=== PATIENT | male | born 1935 | race Caucasian/White ===

== ENCOUNTER 2020-01-07 21:57 | Inpatient (IN) | payer OTHER, BC ==
--- NOTE | 2020-01-07 22:38 | PDOC ---
History of Present Illness - General Chief Complaint: Abnormal Lab Results (Outside) Stated Complaint: DM EMERGENCY/ ANEMIA Time Seen by Provider: 01/07/20 22:33 - History of Present Illness Initial Comments: Pt is a 84yo M with PMH HTN, DM, HLD, CAD who presents with anemia, hyperglycemia, and weakness. Pt sent from Dr. Fish's office given anemia (current 9.5, prior labs 11), hyperglycemia with BG in 700s. Pt's son reports 3 week history of increased weakness, with improvement over the last two days. Son states that pt used to be more active, lives at home on his own, ambulates without a walker. Son states that pt appears weaker/more tired with worsening this week, with associated decreased PO intake. Son reports history of poor dietary choices, mostly carbohydrates with skipped meals. Reports history of diarrhea and vomiting with meals, which has since resolved. Denies f/c, chest pain, SOB, abdominal pain, diarrhea/constipation. PCP: Abe PMH: See above PSH: denies Meds: see chart Allergies: NKDA Review of Systems CONSTITUTIONAL:reports generalized weakness, decreased appetite; denies fever, chills, diaphoresis, malaise HEENT:denies rhinorrhea, nasal congestion, sore throat, visual changes CARDIOVASCULAR:denies chest pain, syncope, palpitations, irregular heart rate, lightheadedness, peripheral edema RESPIRATORY:denies cough, shortness of breath, wheezing, hemoptysis GASTROINTESTINAL: denies abdominal pain, nausea, vomiting, diarrhea, constipation, melena, hematochezia GENITOURINARY:reports increased frequency; denies dysuria, urgency, hesitancy, hematuria, flank pain MUSCULOSKELETAL:denies myalgia, arthralgia HEMATOLOGIC/IMMUNOLOGIC:denies easy bleeding, easy bruising NEUROLOGIC:denies headache, loss of consciousness, focal weakness or paresthesias, dizziness, mental status changes, bladder or bowel incontinence SKIN:denies rash, itching, pallor Physical Exam General: awake, alert, fully oriented, in no acute distress, well developed, well nourished Head: normocephalic, atraumatic Eyes: PERRL, EOMI, anicteric sclera, conjunctiva clear ENT: Auricles normal inspection, hearing grossly normal, oropharynx clear without exudates, moist mucous membranes Neck: supple, normal ROM Lung: equal breath sounds b/l, CTA b/l, no crackles, wheezes Heart: RRR, normal S1, S2, no murmurs appreciated Abdomen: soft, non tender, normoactive bowel sounds, no guarding, rebound, masses Extremities: no edema, no erythema or tenderness, radial/PT pulses 2+ and symmetric Neuro: CN2-12 grossly intact, moves all extremities, normal speech, sensation intact Skin: warm, dry [facility] Pt is a 84yo M with PMH HTN, DM, HLD, CAD who presents with anemia, hyperglycemia, and weakness. DDx including but not limited to: HHS, DKA, infection Workup: labs, ekg pt signed out to night team - pending labs, ekg will likely admit for uncontrolled hyperglycemia Past History - Medical History Allergies/Adverse Reactions: Allergies Allergy/AdvReac Type Severity Reaction Status Date / Time No Known Allergies Allergy Verified 01/08/20 01:01 Home Medications: Ambulatory Orders Aspirin 81 mg PO DAILY 01/08/20 Atorvastatin Ca [Lipitor] 20 mg PO HS 01/08/20 Hydralazine HCl 10 mg PO TID 01/08/20 Isosorbide Mononitrate [Isosorbide Mononitrate ER] 60 mg PO DAILY 01/08/20 Metoprolol Succinate 25 mg PO DAILY 01/08/20 Montelukast Sodium [Singulair] 10 mg PO HS 01/08/20 Latanoprost 1 drop OU HS 01/10/20 Insulin Glargine,Hum.rec.anlog [Toujeo Solostar] 6 unit SQ HS #1 pkt 01/11/20 Insulin Glargine,Hum.rec.anlog [Toujeo Solostar] 12 unit SQ DAILY #1 pkt 01/11/20 Levothyroxine [Synthroid -] 25 mcg PO DAILY@0700 #30 tablet 01/12/20 Anemia: Yes COPD: No Diabetes: Yes HTN: Yes - Psycho-Social/Smoking History Smoking History: Former smoker Have you smoked in the past 12 months: No If you are a former smoker, when did you quit?: 25 Information on smoking cessation initiated: No - Substance Abuse Hx (Audit-C & DAST Scrn) How often the patient has a drink containing alcohol: Never Score: In Men: 4 or > Positive; In Women: 3 or > Positive: 0 Screen Result (Pos requires Nsg. Audit-10AR): Negative In the last yr the pt used illegal drug/Rx for NonMed reason: No Score: Yes response is considered Positive: 0 Screen Result (Positive result requires Nsg. DAST-10): Negative *Physical Exam - Vital Signs Last Vital Signs Temp Pulse Resp BP Pulse Ox 98.5 F 74 19 130/53 L 97 01/07/20 22:06 01/07/20 22:06 01/07/20 22:06 01/07/20 22:06 01/07/20 22:06 ED Treatment Course - LABORATORY CBC & Chemistry Diagram: 01/09/20 08:20 01/09/20 08:20 Discharge - Discharge Information Problems reviewed: Yes Clinical Impression/Diagnosis: Hyperglycemia, Weakness Pancreatitis Qualifiers: Chronicity: acute Pancreatitis type: unspecified pancreatitis type Acute pancreatitis complication: unspecified Qualified Code(s): K85.90 - Acute pancreatitis without necrosis or infection, unspecified Condition: Good Disposition: HOME - Follow up/Referral - Patient Discharge Instructions - Post Discharge Activity
--- NOTE | 2020-01-07 23:29 | PDOC ---
Documentation entered by Shamar Welch SCRIBE, acting as scribe for Manuel Duncan MD. Manuel Duncan MD: This documentation has been prepared by the Yuri torrez Xhesika, SCRIBE, under my direction and personally reviewed by me in its entirety. I confirm that the documentation accurately reflects all work, treatment, procedures, and medical decision making performed by me. Attending Attestation - Resident Resident Name: Nina Gates - ED Attending Attestation I have performed the following: I have examined & evaluated the patient, The case was reviewed & discussed with the resident, I agree w/resident's findings & plan, Exceptions are as noted - HPI HPI: 01/07/20 22:42 The patient is a 84 year old male with a significant PMH of Anemia, DM, and HTN who presents to the emergency department for sent by PCP for hyperglycemia and anemia. Pt reports 3 weeks of weakness, however, son at bedside states his weakness has been getting better the past 2 days. Pt also reports decreased PO intake and increased intake of carbohydrates. The patient denies chest pain, shortness of breath, headache and dizziness. Denies fever, chills, cough, nausea, vomiting, diarrhea and constipation. Denies URI symptoms. Allergies: Per Nursing Chart PCP: Kolby Plummer - Physicial Exam PE: 01/15/20 13:34 See resident exam - Medical Decision Making 01/15/20 13:34 85 M with elevated sugar and weakness. - Labs - IV fluids - Admit Discharge - Discharge Information Problems reviewed: Yes Clinical Impression/Diagnosis: Hyperglycemia, Weakness Pancreatitis Qualifiers: Chronicity: acute Pancreatitis type: unspecified pancreatitis type Acute pancreatitis complication: unspecified Qualified Code(s): K85.90 - Acute pancreatitis without necrosis or infection, unspecified Condition: Good Disposition: HOME - Follow up/Referral - Patient Discharge Instructions - Post Discharge Activity
[2020-01-07 23:43] LABS: URINE APPEARANCE CLEAR; URINE BILIRUBIN NEGATIVE (NEGATIVE); URINE COLOR YELLOW; URINE GLUCOSE (UA) 3+ (NEGATIVE); URINE KETONE NEGATIVE (NEGATIVE); URINE LEUK ESTERASE NEGATIVE (NEGATIVE); URINE NITRITE NEGATIVE (NEGATIVE); URINE PROTEIN NEGATIVE (NEGATIVE); URINE UROBILINOGEN 0.2 mg/dL (0.2-1.0)
[2020-01-07 23:55] LABS: VENOUS BASE EXCESS -0.8 mmol/L (-2-2); VENOUS O2 SATURATION 45.7 % (70-80); VENOUS PCO2 47.6 mmHg (38-52); VENOUS PH 7.341 (7.310-7.410)
[2020-01-07 23:57] LABS: BASO % 0.5 % (0-2.0); EOS % 1.7 % (0-4.5); HEMATOCRIT 30.8 % (35.4-49); HEMOGLOBIN 9.8 GM/dL (11.7-16.9); LYMPH % 29.6 % (8-40); MCHC 31.9 g/dl (32.0-35.9); MEAN CELL VOLUME 87.8 fl (80-96); MONO % 7.8 % (3.8-10.2); NEUT % 60.4 % (42.8-82.8); PLATELET COUNT 216 K/MM3 (134-434); RBC 3.51 M/mm3 (4.00-5.60); RDW 13.4 % (11.9-15.9); WHITE BLOOD COUNT 3.8 K/mm3 (4.0-10.0)
[2020-01-08] MEDS ORDERED: LACTATED RINGERS SOLUTION 1000 ML INFUS.BAG IV STA (00:08)
[2020-01-08] MEDS ORDERED: INSULIN REGULAR HUMAN 100 UNITS/ML *VIAL IVPUSH ONE (00:11)
[2020-01-08 00:12] LABS: INR 1.07 (0.83-1.09); PROTHROMBIN TIME (PATIENT) 12.6 SEC (9.7-13.0)
[2020-01-08 00:14] LABS: ACTIVATED PTT 32.2 SECONDS (25.2-36.5)
[2020-01-08 00:22] LABS: MAGNESIUM 2.2 mg/dL (1.8-2.4)
[2020-01-08 00:37] LABS: ALBUMIN 2.4 g/dl (3.4-5.0); ALK PHOS 186 U/L (45-117); ANION GAP 7 MMOL/L (8-16); BILIRUBIN,TOTAL 0.2 mg/dL (0.2-1); BLOOD UREA NITROGEN 38.5 mg/dL (7-18); CALCIUM 8.7 mg/dL (8.5-10.1); CHLORIDE 98 mmol/L (98-107); CO2 28 mmol/L (21-32); CREATININE 1.8 mg/dL (0.55-1.3); LIPASE 724 U/L (73-393); POTASSIUM 4.7 mmol/L (3.5-5.1); SGOT/AST 17 U/L (15-37); SGPT/ALT 41 U/L (13-61); SODIUM 134 mmol/L (136-145); TOT PROT 6.5 g/dl (6.4-8.2)
[2020-01-08 01:03] LABS: GLUCOSE,RANDOM 631 mg/dL (74-106)
--- NOTE | 2020-01-08 01:38 | PDOC ---
*Physical Exam - Vital Signs Last Vital Signs Temp Pulse Resp BP Pulse Ox 98.5 F 74 19 130/53 L 97 01/07/20 22:06 01/07/20 22:06 01/07/20 22:06 01/07/20 22:06 01/07/20 22:06 - Physical Exam sign out was given . Lab revealed 700 lipase, elevated BS Admitted for pancreatitis under Dr. Rosen. NPO Fluid. ED Treatment Course - LABORATORY CBC & Chemistry Diagram: 01/07/20 23:45 01/07/20 23:45 - ADDITIONAL ORDERS Additional order review: Laboratory Results 01/08/20 01/07/20 01/07/20 00:03 23:45 23:45 PT with INR INR PTT (Actin FS) VBG pH 7.341 POC VBG pCO2 47.6 POC VBG pO2 26.8 L VBG HCO3 25.2 VBG O2 Sat (Idalmis) 45.7 L VBG Base Excess -0.8 Sodium Potassium Chloride Carbon Dioxide Anion Gap BUN Creatinine Est GFR (CKD-EPI)AfAm Est GFR (CKD-EPI)NonAf POC Glucometer 564 Random Glucose Calcium Magnesium 2.2 Total Bilirubin AST ALT Alkaline Phosphatase Troponin I Total Protein Albumin Lipase Beta-Hydroxybutyrate 0.8 Urine Color Urine Appearance Urine pH Ur Specific [place] Urine Protein Urine Glucose (UA) Urine Ketones Urine Blood Urine Nitrite Urine Bilirubin Urine Urobilinogen Ur Leukocyte Esterase 01/07/20 01/07/20 01/07/20 23:45 23:45 23:33 PT with INR 12.60 INR 1.07 PTT (Actin FS) 32.2 VBG pH POC VBG pCO2 POC VBG pO2 VBG HCO3 VBG O2 Sat (Idalmis) VBG Base Excess Sodium 134 L Potassium 4.7 Chloride 98 Carbon Dioxide 28 Anion Gap 7 L BUN 38.5 H Creatinine 1.8 H Est GFR (CKD-EPI)AfAm 38.91 Est GFR (CKD-EPI)NonAf 33.57 POC Glucometer Random Glucose 631 H* Calcium 8.7 Magnesium Total Bilirubin 0.2 AST 17 ALT 41 Alkaline Phosphatase 186 H Troponin I < 0.02 Total Protein 6.5 Albumin 2.4 L Lipase 724 H Beta-Hydroxybutyrate Urine Color Yellow Urine Appearance Clear Urine pH 5.0 Ur Specific [place] 1.022 Urine Protein Negative Urine Glucose (UA) 3+ H Urine Ketones Negative Urine Blood Negative Urine Nitrite Negative Urine Bilirubin Negative Urine Urobilinogen 0.2 Ur Leukocyte Esterase Negative 01/08/20 00:03 POC Glucometer 564 - Medications Given in the ED: ED Medications Discontinued Medications Generic Name Dose Route Start Last Admin Trade Name Tiago PRN Reason Stop Dose Admin Insulin Human Regular 7 units 01/08/20 00:11 01/08/20 01:00 Novolin R Vial *For Ivpush Or Iv Drip Only* IVPUSH 01/08/20 00:12 7 units ONCE ONE Administration Lactated Ringer's 1,000 ml 01/08/20 00:08 01/08/20 00:59 Lactated Ringers Solution IV 01/08/20 00:09 1,000 ml ONCE STA Administration Discharge - Discharge Information Problems reviewed: Yes Clinical Impression/Diagnosis: Pancreatitis Qualifiers: Chronicity: acute Pancreatitis type: unspecified pancreatitis type Acute pancreatitis complication: unspecified Qualified Code(s): K85.90 - Acute pancreatitis without necrosis or infection, unspecified Condition: Good - Admission Yes - Follow up/Referral - Patient Discharge Instructions - Post Discharge Activity
--- NOTE | 2020-01-08 03:12 | HP ---
Admitting History and Physical - Primary Care Physician PCP: sophia south - Admission Chief Complaint: Abnormal Lab Values, Weakness History of Present Illness: This is a 84 year old male with a significant PMHx of Anemia, DM, HTN. Who presents to the ED sent by his PCP for hyperglycemia and anemia. Patient reports having a loss of appetite x 2 weeks. he reports just drinking water and juice. He reports having an increased appetite starting yesterday. Patient denies fever, chills, cough, SOB, CP, palpitations, abdominal pain, nausea, vomiting, diarrhea, constipation, melena, hematochezia, dysuria. Patient denies sick contacts or recent travel. History Source: Patient Limitations to Obtaining History: No Limitations - Past Medical History Cardiovascular: Yes: HTN Heme/Onc: Yes: Anemia Endocrine: Yes: Diabetes Mellitus - Smoking History Smoking history: Former smoker Have you smoked in the past 12 months: No If you are a former smoker, when did you quit?: 25 - Alcohol/Substance Use Hx Alcohol Use: No History of Substance Use: reports: None - Social History Usual Living Arrangement: Yes: Alone, With Child ADL: Independent History of Recent Travel: No Home Medications - Allergies Allergies/Adverse Reactions: Allergies Allergy/AdvReac Type Severity Reaction Status Date / Time No Known Allergies Allergy Verified 01/08/20 01:01 - Home Medications Home Medications: Ambulatory Orders Aspirin 81 mg PO DAILY 01/08/20 Atorvastatin Ca [Lipitor] 20 mg PO HS 01/08/20 Glyburide 5 mg PO BID 01/08/20 Hydralazine HCl 10 mg PO TID 01/08/20 Insulin Glargine,Hum.rec.anlog [Jesus Solchuck] 48 unit SQ DAILY 01/08/20 Isosorbide Mononitrate [Isosorbide Mononitrate ER] 60 mg PO DAILY 01/08/20 Metoprolol Succinate 25 mg PO DAILY 01/08/20 Montelukast Sodium [Singulair] 10 mg PO HS 01/08/20 levoFLOXacin [Levaquin -] 500 mg PO DAILY 01/08/20 Family Medical History Family History: Unremarkable Review of Systems - Review of Systems Constitutional: reports: Loss of Appetite Eyes: reports: No Symptoms HENT: reports: No Symptoms Neck: reports: No Symptoms Cardiovascular: reports: No Symptoms Respiratory: reports: No Symptoms Gastrointestinal: reports: No Symptoms Genitourinary: reports: No Symptoms Breasts: reports: No Symptoms Reported Musculoskeletal: reports: No Symptoms Integumentary: reports: No Symptoms Neurological: reports: No Symptoms Endocrine: reports: No Symptoms Hematology/Lymphatic: reports: No Symptoms Psychiatric: reports: No Symptoms Physical Examination Vital Signs: Vital Signs Temperature 98.5 F 01/07/20 22:06 Pulse Rate 74 01/07/20 22:06 Respiratory Rate 19 01/07/20 22:06 Blood Pressure 130/53 L 01/07/20 22:06 O2 Sat by Pulse Oximetry (%) 97 01/07/20 22:06 Constitutional: Yes: No Distress, Calm Eyes: Yes: Conjunctiva Clear, EOM Intact, PERRL HENT: Yes: Atraumatic, Normocephalic Neck: Yes: Supple, Trachea Midline Cardiovascular: Yes: Regular Rate and Rhythm Respiratory: Yes: Regular, CTA Bilaterally Gastrointestinal: Yes: Soft, Distention, Hypoactive Bowel Sounds Renal/: Yes: WNL Breast(s): Yes: WNL Musculoskeletal: Yes: WNL Extremities: Yes: WNL Edema: No Peripheral Pulses WNL: Yes Neurological: Yes: WNL, Alert, Oriented, Cran Nerves II-XII Intact ...Motor Strength: WNL Psychiatric: Yes: WNL, Alert, Oriented Labs: CBC, BMP 01/07/20 23:45 01/07/20 23:45 Laboratory Results - last 24 hr 01/07/20 01/07/20 01/07/20 23:33 23:45 23:45 WBC 3.8 L RBC 3.51 L Hgb 9.8 L Hct 30.8 L D MCV 87.8 MCH 28.0 MCHC 31.9 L RDW 13.4 Plt Count 216 D MPV 9.0 Absolute Neuts (auto) 2.3 Neutrophils % 60.4 Lymphocytes % 29.6 Monocytes % 7.8 Eosinophils % 1.7 Basophils % 0.5 Nucleated RBC % 0 PT with INR 12.60 INR 1.07 PTT (Actin FS) 32.2 VBG pH POC VBG pCO2 POC VBG pO2 VBG HCO3 VBG O2 Sat (Idalmis) VBG Base Excess Sodium Potassium Chloride Carbon Dioxide Anion Gap BUN Creatinine Est GFR (CKD-EPI)AfAm Est GFR (CKD-EPI)NonAf POC Glucometer Random Glucose Calcium Magnesium Total Bilirubin AST ALT Alkaline Phosphatase Troponin I Total Protein Albumin Lipase Beta-Hydroxybutyrate Urine Color Yellow Urine Appearance Clear Urine pH 5.0 Ur Specific [place] 1.022 Urine Protein Negative Urine Glucose (UA) 3+ H Urine Ketones Negative Urine Blood Negative Urine Nitrite Negative Urine Bilirubin Negative Urine Urobilinogen 0.2 Ur Leukocyte Esterase Negative 01/07/20 01/07/20 01/07/20 23:45 23:45 23:45 WBC RBC Hgb Hct MCV MCH MCHC RDW Plt Count MPV Absolute Neuts (auto) Neutrophils % Lymphocytes % Monocytes % Eosinophils % Basophils % Nucleated RBC % PT with INR INR PTT (Actin FS) VBG pH 7.341 POC VBG pCO2 47.6 POC VBG pO2 26.8 L VBG HCO3 25.2 VBG O2 Sat (Idalmis) 45.7 L VBG Base Excess -0.8 Sodium 134 L Potassium 4.7 Chloride 98 Carbon Dioxide 28 Anion Gap 7 L BUN 38.5 H Creatinine 1.8 H Est GFR (CKD-EPI)AfAm 38.91 Est GFR (CKD-EPI)NonAf 33.57 POC Glucometer Random Glucose 631 H* Calcium 8.7 Magnesium 2.2 Total Bilirubin 0.2 AST 17 ALT 41 Alkaline Phosphatase 186 H Troponin I < 0.02 Total Protein 6.5 Albumin 2.4 L Lipase 724 H Beta-Hydroxybutyrate 0.8 Urine Color Urine Appearance Urine pH Ur Specific [place] Urine Protein Urine Glucose (UA) Urine Ketones Urine Blood Urine Nitrite Urine Bilirubin Urine Urobilinogen Ur Leukocyte Esterase 01/08/20 01/08/20 00:03 03:18 WBC RBC Hgb Hct MCV MCH MCHC RDW Plt Count MPV Absolute Neuts (auto) Neutrophils % Lymphocytes % Monocytes % Eosinophils % Basophils % Nucleated RBC % PT with INR INR PTT (Actin FS) VBG pH POC VBG pCO2 POC VBG pO2 VBG HCO3 VBG O2 Sat (Idalmis) VBG Base Excess Sodium Potassium Chloride Carbon Dioxide Anion Gap BUN Creatinine Est GFR (CKD-EPI)AfAm Est GFR (CKD-EPI)NonAf POC Glucometer 564 326 Random Glucose Calcium Magnesium Total Bilirubin AST ALT Alkaline Phosphatase Troponin I Total Protein Albumin Lipase Beta-Hydroxybutyrate Urine Color Urine Appearance Urine pH Ur Specific [place] Urine Protein Urine Glucose (UA) Urine Ketones Urine Blood Urine Nitrite Urine Bilirubin Urine Urobilinogen Ur Leukocyte Esterase Current Medications Generic Name Dose Route Start Last Admin Trade Name Freq PRN Reason Stop Dose Admin Sodium Chloride 1,000 mls @ 100 mls/hr 01/08/20 03:15 01/08/20 03:35 Normal Saline - IV 100 mls/hr ASDIR STEFANIE Administration Insulin Aspart 1 vial 01/08/20 07:00 Novolog Vial Sliding Scale - SQ ACHS STEFANIE Protocol Imaging - Results Chest X-ray: Image Reviewed Cat Scan: Report Reviewed, Image Reviewed EKG: Image Reviewed Problem List - Problems (1) Diabetes mellitus with hyperosmolarity without hyperglycemic hyperosmolar nonketotic coma Assessment/Plan: Likely due to Dehydration Glucose 631 Insulin given in ED 526~326 Fluid Bolus given in ED Will continue isotonic fluids for now When glucose < 250 change fluids to D50.45%NS with KCL [employer] consult BGMs ISS Monitor vitals Monitor CBC, CMP Code(s): E11.00 - TYPE 2 DIAB W HYPROSM W/O NONKET HYPRGLY-HYPROS COMA ([facility]) (2) Anemia Assessment/Plan: Hgb 9.8 Will transfuse if Hgb < 7.0 Fe, TIBC, Ferritin in am Stool Occult-pending Repeat CBC Monitor vitals Consider Hematology consult Code(s): D64.9 - ANEMIA, UNSPECIFIED (3) Weakness Assessment/Plan: Likely secondary to dehydration Head CT- neg ICH Monitor CBC, CMP Monitor vitals Fall Precautions Code(s): R53.1 - WEAKNESS (4) Pancreatitis Assessment/Plan: Likely secondary to sulfonylureas Lipase 724 GI Consult Abdominal US-pending Monitor CBC, CMP Continue IVF Monitor vitals Code(s): K85.90 - ACUTE PANCREATITIS WITHOUT NECROSIS OR INFECTION, UNSP Qualifiers: Chronicity: acute Pancreatitis type: unspecified pancreatitis type Acute pancreatitis complication: unspecified Qualified Code(s): K85.90 - Acute pancreatitis without necrosis or infection, unspecified (5) HTN (hypertension) Assessment/Plan: stable Monitor BP Continue home meds with parameters Monitor renal function Code(s): I10 - ESSENTIAL (PRIMARY) HYPERTENSION (6) Encounter for screening laboratory testing for COVID-19 virus Assessment/Plan: Low Risk-1 COVID PCR-pending Isolation Precautions Code(s): Z11.59 - ENCOUNTER FOR SCREENING FOR OTHER VIRAL DISEASES Assessment/Plan This is a 84 year old male with a significant PMHx of Anemia, DM, HTN. Who presents to the ED sent by his PCP for hyperglycemia and anemia. Admitted for Pancreattitis, RAZ, Hyperosmolar Hyperglycemic State, Weakness for further evaluation of their emergent condition Plan: See Problem List FEN NS@100ml/hr Na Corrected 142, replete lytes prn NPO DVT ppx OOB SCDs Heparin SQ Dispo: Requires Inpatient Care Visit type - Medication Review Med list reviewed for High Risk Meds patients 65 and older: Yes - Emergency Visit Emergency Visit: Yes ED Registration Date: 01/07/20 Care time: The patient presented to the Emergency Department on the above date and was hospitalized for further evaluation of their emergent condition. - New Patient This patient is new to me today: Yes Date on this admission: 01/08/20 - Critical Care Critical Care patient: No
[2020-01-08] MEDS ORDERED: SODIUM CHLORIDE 1,000 ML IV SCH (03:15)
[2020-01-08 06:17] LABS: BASO % 0.7 % (0-2.0); WHITE BLOOD COUNT 4.3 K/mm3 (4.0-10.0)
[2020-01-08 06:39] LABS: ALBUMIN 2.2 g/dl (3.4-5.0); CREATININE 1.4 mg/dL (0.55-1.3)
[2020-01-08 08:21] LABS: BILIRUBIN,TOTAL 0.2 mg/dL (0.2-1); BLOOD UREA NITROGEN 33.1 mg/dL (7-18); CALCIUM 8.5 mg/dL (8.5-10.1); POTASSIUM 4.3 mmol/L (3.5-5.1); TOT PROT 5.7 g/dl (6.4-8.2)
[2020-01-08] MEDS: INSULIN SLIDING SCALE (NOVOLOG) 1 VIAL SQ SCH ×4 (08:54→23:20)
[2020-01-08 10:22] LABS: HEMATOCRIT 27.5 % (35.4-49); HEMOGLOBIN 8.9 GM/dL (11.7-16.9); MCH 27.8 pg (25.7-33.7); MCHC 32.4 g/dl (32.0-35.9); MEAN CELL VOLUME 85.6 fl (80-96); PLATELET COUNT 193 K/MM3 (134-434); RBC 3.21 M/mm3 (4.00-5.60); RETICULOCYTES 1.84 % (0.5-1.5)
[2020-01-08 10:23] LABS: EOS % 1.6 % (0-4.5); LYMPH % 33.7 % (8-40); MEAN PLT VOLUME 9.2 fl (7.5-11.1); MONO % 7.6 % (3.8-10.2); NEUT % 56.4 % (42.8-82.8)
[2020-01-08] MEDS ORDERED: ISOSORBIDE MONONITRATE 60 MG TAB.SR.24H (FP) PO ONE (10:46)
[2020-01-08] MEDS ORDERED: metoPROLOL SUCCINATE 25 MG TAB.SR.24H (FP) ONE (10:46)
[2020-01-08] MEDS ORDERED: ASPIRIN 81 MG CHEWABLE TABLETS ONE (10:46)
--- NOTE | 2020-01-08 10:46 | EKG ---
Test Reason : Blood Pressure : / mmHG Vent. Rate : 073 BPM Atrial Rate : 073 BPM P-R Int : 160 ms QRS Dur : 102 ms QT Int : 440 ms P-R-T Axes : 061 036 077 degrees QTc Int : 484 ms SINUS RHYTHM WITH PREMATURE ATRIAL COMPLEXES NONSPECIFIC ST AND T WAVE ABNORMALITY PROLONGED QT ABNORMAL ECG Confirmed by NIMESH LEAHY MD ([id number]) on 01/08/2020 10:46:30 AM Referred By: Confirmed By:NIMESH LEAHY MD
[2020-01-08] MEDS: SODIUM CHLORIDE 0.45%/POT 20 MEQ/1,000 ML INFUS.BAG IV SCH ×2 (11:08→23:21)
[2020-01-08] MEDS: ASPIRIN 81 MG CHEWABLE TABLETS PO SCH (11:09)
[2020-01-08] MEDS: metoPROLOL SUCCINATE 25 MG TAB.SR.24H (FP) PO SCH (11:09)
[2020-01-08] MEDS: ISOSORBIDE MONONITRATE 60 MG TAB.SR.24H (FP) PO SCH (11:09)
--- NOTE | 2020-01-08 14:56 | PN ---
Progress Note, Physician History of Present Illness: Pt seen in Er Chart is reviewed Awake/ comfortable - Current Medication List Current Medications: Active Medications Aspirin (Asa -) 81 mg PO DAILY [facility] Last Admin: 01/08/20 11:09 Dose: 81 mg Documented by: Hydralazine HCl (Apresoline -) 10 mg PO TID [facility] Potassium Chloride/Sodium Chloride (1/2ns+20meq Kcl) 20 meq in 1,000 mls @ 100 mls/hr IV ASDIR [facility] Last Admin: 01/08/20 11:08 Dose: 100 mls/hr Documented by: Insulin Aspart (Novolog Vial Sliding Scale -) 1 vial SQ ACHS [facility]; Protocol Last Admin: 01/08/20 12:14 Dose: 8 units Documented by: Insulin Detemir (Levemir Vial) 10 units SQ 0700,2200 [facility] Isosorbide Mononitrate (Imdur -) 60 mg PO DAILY [facility] Last Admin: 01/08/20 11:09 Dose: 60 mg Documented by: Metoprolol Succinate (Toprol Xl -) 25 mg PO DAILY [facility] Last Admin: 01/08/20 11:09 Dose: 25 mg Documented by: Montelukast Sodium (Singulair -) 10 mg PO [facility] - Objective Vital Signs: Vital Signs Temperature 97.8 F 01/08/20 12:18 Pulse Rate 72 01/08/20 12:18 Respiratory Rate 18 01/08/20 12:18 Blood Pressure 110/59 L 01/08/20 12:18 O2 Sat by Pulse Oximetry (%) 99 01/08/20 12:18 Constitutional: Yes: No Distress, Calm Neck: Yes: Supple Cardiovascular: Yes: Regular Rate and Rhythm Respiratory: Yes: CTA Bilaterally Gastrointestinal: Yes: Soft Edema: No Neurological: Yes: Alert Labs: CBC, BMP 01/08/20 05:54 01/08/20 05:54 INR, PTT INR 1.07 (0.83-1.09) 01/07/20 23:45 Problem List - Problems (1) Diabetes mellitus with hyperosmolarity without hyperglycemic hyperosmolar nonketotic coma Code(s): E11.00 - TYPE 2 DIAB W HYPROSM W/O NONKET HYPRGLY-HYPROS COMA ([facility]) (2) HTN (hypertension) Code(s): I10 - ESSENTIAL (PRIMARY) HYPERTENSION (3) Pancreatitis Code(s): K85.90 - ACUTE PANCREATITIS WITHOUT NECROSIS OR INFECTION, UNSP Qualifiers: Chronicity: acute Pancreatitis type: unspecified pancreatitis type Acute pancreatitis complication: unspecified Qualified Code(s): K85.90 - Acute pancreatitis without necrosis or infection, unspecified Assessment/Plan Discussed Fluids Trisal of clear liquid f/u labs u/s abd pending gi consult Monitor bgm Basal insulin Will follow Condition gaurded but stable will follow
[2020-01-08] MEDS ORDERED: hydrALAZINE HCL 25 MG TABLET (FP) ONE (16:07)
[2020-01-08] MEDS: hydrALAZINE HCL 10 MG TABLET PO SCH ×2 (16:30→23:19)
[2020-01-08] MEDS: INSULIN (LEVEMIR) 100 UNITS/ML UNITS SQ SCH (23:19)
[2020-01-08] MEDS: HEPARIN NA (PORCINE) 5,000 UNITS/ML 1ML VIAL SQ SCH (23:19)
[2020-01-08] MEDS: MONTELUKAST NA 10 MG TABLET PO SCH (23:19)
[2020-01-09 02:50] VITALS: BMI 28.5
[2020-01-09] MEDS: hydrALAZINE HCL 10 MG TABLET PO SCH ×3 (06:33→21:51)
[2020-01-09] MEDS: INSULIN SLIDING SCALE (NOVOLOG) 1 VIAL SQ SCH ×4 (06:39→21:52)
[2020-01-09 08:57] LABS: BASO % 0.4 % (0-2.0); EOS % 2.1 % (0-4.5); HEMATOCRIT 30.4 % (35.4-49); LYMPH % 39.5 % (8-40); MCH 28.1 pg (25.7-33.7); MEAN CELL VOLUME 85.2 fl (80-96); MEAN PLT VOLUME 8.5 fl (7.5-11.1); MONO % 6.8 % (3.8-10.2); NEUT % 51.2 % (42.8-82.8); PLATELET COUNT 316 K/MM3 (134-434); RBC 3.57 M/mm3 (4.00-5.60); WHITE BLOOD COUNT 8.5 K/mm3 (4.0-10.0)
[2020-01-09 09:31] LABS: ALBUMIN 2.3 g/dl (3.4-5.0); BILIRUBIN,TOTAL 0.3 mg/dL (0.2-1); BLOOD UREA NITROGEN 19.8 mg/dL (7-18); CALCIUM 8.4 mg/dL (8.5-10.1); CREATININE 1.2 mg/dL (0.55-1.3); POTASSIUM 4.6 mmol/L (3.5-5.1); TOT PROT 6.1 g/dl (6.4-8.2)
[2020-01-09] MEDS: INSULIN (LEVEMIR) 100 UNITS/ML UNITS SQ SCH ×2 (10:01→21:53)
--- NOTE | 2020-01-09 10:08 | CON.GI ---
Consult Consult Specialty:: GI Referred by:: Mike Conklin Reason for Consultation:: suspicion of pancreatitis - History of Present Illness Chief Complaint: Nausea, poor appetite, weakness, diarrhea. - History Source History Provided By: Medical Record Limitations to Obtaining History: Other (pt poor historian) - Past Medical History Cardio/Vascular: Yes: HTN Endocrine: Yes: Diabetes Mellitus - Alcohol/Substance Use Hx Alcohol Use: No History of Substance Use: reports: None - Smoking History Smoking history: Former smoker Have you smoked in the past 12 months: No If you are a former smoker, when did you quit?: 25 - Social History ADL: Independent History of Recent Travel: No Home Medications - Allergies Allergies/Adverse Reactions: Allergies Allergy/AdvReac Type Severity Reaction Status Date / Time No Known Allergies Allergy Verified 01/08/20 01:01 - Home Medications Home Medications: Ambulatory Orders Aspirin 81 mg PO DAILY 01/08/20 Atorvastatin Ca [Lipitor] 20 mg PO HS 01/08/20 Glyburide 5 mg PO BID 01/08/20 Hydralazine HCl 10 mg PO TID 01/08/20 Insulin Glargine,Hum.rec.anlog [Toujeo Solostar] 48 unit SQ DAILY 01/08/20 Isosorbide Mononitrate [Isosorbide Mononitrate ER] 60 mg PO DAILY 01/08/20 Metoprolol Succinate 25 mg PO DAILY 01/08/20 Montelukast Sodium [Singulair] 10 mg PO HS 01/08/20 levoFLOXacin [Levaquin -] 500 mg PO DAILY 01/08/20 Review of Systems - Review of Systems Constitutional: reports: Loss of Appetite, Weakness Physical Exam-GI Vital Signs: Vital Signs Temperature 97.7 F 01/09/20 06:00 Pulse Rate 81 01/09/20 06:00 Respiratory Rate 01/09/20 06:00 Blood Pressure 117/62 01/09/20 06:00 O2 Sat by Pulse Oximetry (%) 96 01/09/20 06:00 Labs: CBC, BMP 01/09/20 08:20 01/09/20 08:20 INR, PTT INR 1.07 (0.83-1.09) 01/07/20 23:45 Imaging - Results Ultrasound: Report Reviewed Problem List - Problems (1) Pancreatitis Code(s): K85.90 - ACUTE PANCREATITIS WITHOUT NECROSIS OR INFECTION, UNSP Qualifiers: Chronicity: acute Pancreatitis type: unspecified pancreatitis type Acute pancreatitis complication: unspecified Qualified Code(s): K85.90 - Acute pancreatitis without necrosis or infection, unspecified Assessment/Plan Mildly elevated lipase. A diagnosis of pancreatitis requires 2 of the following 3 criteria: 1) an amylase or lipase level at least 3x upper limit of normal, 2) compatible upper abdominal pain, 3) imaging suggestive of pancreatic inflammation. He does not meet even 1 of these criteria. He does not have pancreatitis. Will allow diabetic diet as he tells me he is hungry.
[2020-01-09] MEDS: metoPROLOL SUCCINATE 25 MG TAB.SR.24H (FP) PO SCH (10:11)
[2020-01-09] MEDS: HEPARIN NA (PORCINE) 5,000 UNITS/ML 1ML VIAL SQ SCH ×2 (10:11→21:50)
[2020-01-09] MEDS: ASPIRIN 81 MG CHEWABLE TABLETS PO SCH (10:11)
[2020-01-09] MEDS: ISOSORBIDE MONONITRATE 60 MG TAB.SR.24H (FP) PO SCH (10:11)
[2020-01-09] MEDS: SODIUM CHLORIDE 0.45%/POT 20 MEQ/1,000 ML INFUS.BAG IV SCH (10:13)
[2020-01-09] MEDS ORDERED: INSULIN (LEVEMIR) 100 UNITS/ML UNITS SQ ONE (11:58)
--- NOTE | 2020-01-09 11:58 | PN ---
Progress Note (short form) - Note Progress Note: events noted no abd pain feels well he is hungry Vital Signs - 24 hr 01/08/20 01/08/20 01/09/20 12:18 21:58 02:00 Temperature 97.8 F 98.2 F 97.5 F L Pulse Rate 80 77 Pulse Rate [ 72 Apical] Respiratory 18 22 H 20 Rate Blood Pressure 118/60 94/53 L Blood Pressure 110/59 L [Right Arm] O2 Sat by Pulse 99 96 97 Oximetry (%) 01/09/20 01/09/20 01/09/20 06:00 09:00 10:00 Temperature 97.7 F Pulse Rate 81 80 Pulse Rate [ Apical] Respiratory 20 18 Rate Blood Pressure 117/62 114/64 Blood Pressure [Right Arm] O2 Sat by Pulse 96 98 98 Oximetry (%) Current Medications Generic Name Dose Route Start Last Admin Trade Name Freq PRN Reason Stop Dose Admin Aspirin 81 mg 01/08/20 10:00 01/09/20 10:11 Asa - PO 81 mg DAILY [facility] Administration Heparin Sodium (Porcine) 5,000 unit 01/08/20 22:00 01/09/20 10:11 Heparin - SQ 5,000 unit BID ST[facility] Administration Hydralazine HCl 10 mg 01/08/20 14:00 01/09/20 06:33 Apresoline - PO 10 mg TID ST[facility] Administration Insulin Aspart 1 vial 01/08/20 07:00 01/09/20 06:39 Novolog Vial Sliding Scale - SQ Not Given ACHS [facility] Protocol Insulin Detemir 10 units 01/08/20 22:00 01/09/20 10:01 Levemir Vial SQ Not Given 0700,2200 ST[facility] Isosorbide Mononitrate 60 mg 01/08/20 10:00 01/09/20 10:11 Imdur - PO 60 mg DAILY ST[facility] Administration Metoprolol Succinate 25 mg 01/08/20 10:00 01/09/20 10:11 Toprol Xl - PO 25 mg DAILY [facility] Administration Montelukast Sodium 10 mg 01/08/20 22:00 01/08/20 23:19 Singulair - PO 10 mg HS ST[facility]AN[facility] Administration Laboratory Results - last 24 hr 01/08/20 01/08/20 01/09/20 16:27 23:15 06:28 WBC RBC Hgb Hct MCV MCH MCHC RDW Plt Count MPV Absolute Neuts (auto) Neutrophils % Lymphocytes % Monocytes % Eosinophils % Basophils % Nucleated RBC % Sodium Potassium Chloride Carbon Dioxide Anion Gap BUN Creatinine Est GFR (CKD-EPI)AfAm Est GFR (CKD-EPI)NonAf POC Glucometer 334 224 78 Random Glucose Hemoglobin A1c % Calcium Total Bilirubin AST ALT Alkaline Phosphatase Total Protein Albumin Lipase TSH 01/09/20 01/09/20 01/09/20 08:20 08:20 08:20 WBC 8.5 RBC 3.57 L Hgb 10.0 L Hct 30.4 L MCV 85.2 MCH 28.1 MCHC 33.0 RDW 13.0 Plt Count 316 D MPV 8.5 Absolute Neuts (auto) 4.3 Neutrophils % 51.2 Lymphocytes % 39.5 Monocytes % 6.8 Eosinophils % 2.1 Basophils % 0.4 Nucleated RBC % 0 Sodium 140 Potassium 4.6 Chloride 104 Carbon Dioxide 29 Anion Gap 7 L BUN 19.8 H Creatinine 1.2 Est GFR (CKD-EPI)AfAm 63.08 Est GFR (CKD-EPI)NonAf 54.43 POC Glucometer Random Glucose 62 L Hemoglobin A1c % 8.5 H Calcium 8.4 L Total Bilirubin 0.3 AST 15 ALT 30 Alkaline Phosphatase 120 H Total Protein 6.1 L Albumin 2.3 L Lipase 230 TSH 6.77 H 01/09/20 11:43 WBC RBC Hgb Hct MCV MCH MCHC RDW Plt Count MPV Absolute Neuts (auto) Neutrophils % Lymphocytes % Monocytes % Eosinophils % Basophils % Nucleated RBC % Sodium Potassium Chloride Carbon Dioxide Anion Gap BUN Creatinine Est GFR (CKD-EPI)AfAm Est GFR (CKD-EPI)NonAf POC Glucometer 174 Random Glucose Hemoglobin A1c % Calcium Total Bilirubin AST ALT Alkaline Phosphatase Total Protein Albumin Lipase TSH S1 S2 RRR Lungs clear Abd- soft, obese, NT trace edema PLAN dc iv fluids GI eval noted starting diet monitor BGM COVID pending Problem List - Problems (1) Anemia Code(s): D64.9 - ANEMIA, UNSPECIFIED (2) Diabetes mellitus with hyperosmolarity without hyperglycemic hyperosmolar nonketotic coma Code(s): E11.00 - TYPE 2 DIAB W HYPROSM W/O NONKET HYPRGLY-HYPROS COMA ([facility]) (3) HTN (hypertension) Code(s): I10 - ESSENTIAL (PRIMARY) HYPERTENSION
[2020-01-09] MEDS: MONTELUKAST NA 10 MG TABLET PO SCH (21:51)
[2020-01-10] MEDS: INSULIN SLIDING SCALE (NOVOLOG) 1 VIAL SQ SCH ×4 (06:24→22:18)
[2020-01-10] MEDS: hydrALAZINE HCL 10 MG TABLET PO SCH ×3 (06:24→22:30)
[2020-01-10] MEDS: INSULIN (LEVEMIR) 100 UNITS/ML UNITS SQ SCH ×3 (06:24→22:17)
[2020-01-10] MEDS: LEVOTHYROXINE NA 25 MCG TABLET (FP) PO SCH (06:24)
[2020-01-10] MEDS: HEPARIN NA (PORCINE) 5,000 UNITS/ML 1ML VIAL SQ SCH ×2 (09:25→22:31)
[2020-01-10] MEDS: metoPROLOL SUCCINATE 25 MG TAB.SR.24H (FP) PO SCH (09:25)
[2020-01-10] MEDS: ASPIRIN 81 MG CHEWABLE TABLETS PO SCH (09:25)
[2020-01-10] MEDS: ISOSORBIDE MONONITRATE 60 MG TAB.SR.24H (FP) PO SCH (09:25)
[2020-01-10] MEDS ORDERED: INSULIN (NOVOLOG) ASPART 100 UNITS/ML 10ML VIAL ONE ×2 (11:07→18:57)
[2020-01-10] MEDS ORDERED: INSULIN (LEVEMIR) 100 UNITS/ML UNITS SQ ONE ×4 (11:07→18:57)
--- NOTE | 2020-01-10 11:15 | PN ---
Progress Note (short form) - Note Progress Note: events noted no abd pain feels well he is hungry noted low sugars in AM Vital Signs - 24 hr 01/09/20 01/09/20 01/09/20 14:00 18:00 21:00 Temperature 97.5 F L 98.1 F Pulse Rate 70 79 Respiratory 18 18 18 Rate Blood Pressure 114/48 L 123/61 O2 Sat by Pulse 95 97 97 Oximetry (%) 01/09/20 01/10/20 01/10/20 22:00 06:00 09:10 Temperature 98.5 F 98.1 F 98.4 F Pulse Rate 72 61 69 Respiratory 18 18 18 Rate Blood Pressure 116/58 L 131/66 127/54 L O2 Sat by Pulse 98 95 97 Oximetry (%) 01/10/20 09:31 Temperature Pulse Rate Respiratory Rate Blood Pressure O2 Sat by Pulse 97 Oximetry (%) Current Medications Generic Name Dose Route Start Last Admin Trade Name Freq PRN Reason Stop Dose Admin Aspirin 81 mg 01/08/20 10:00 01/10/20 09:25 Asa - PO 81 mg DAILY [facility] Administration Heparin Sodium (Porcine) 5,000 unit 01/08/20 22:00 01/10/20 09:25 Heparin - SQ 5,000 unit BID [facility] Administration Hydralazine HCl 10 mg 01/08/20 14:00 01/10/20 06:24 Apresoline - PO 10 mg TID [facility] Administration Insulin Aspart 1 vial 01/08/20 07:00 01/10/20 06:24 Novolog Vial Sliding Scale - SQ Not Given ACHS [facility] Protocol Insulin Detemir 10 units 01/08/20 22:00 01/10/20 06:24 Levemir Vial SQ Not Given 0700,2200 [facility] Isosorbide Mononitrate 60 mg 01/08/20 10:00 01/10/20 09:25 Imdur - PO 60 mg DAILY [facility] Administration Levothyroxine Sodium 25 mcg 01/10/20 07:00 01/10/20 06:24 Synthroid - PO 25 mcg DAILY@0700 [facility] Administration Metoprolol Succinate 25 mg 01/08/20 10:00 01/10/20 09:25 Toprol Xl - PO 25 mg DAILY [facility] Administration Montelukast Sodium 10 mg 01/08/20 22:00 01/09/20 21:51 Singulair - PO 10 mg HS ST[facility] Administration Laboratory Results - last 24 hr 01/08/20 01/08/20 01/09/20 01:06 10:25 11:43 POC Glucometer 174 Stool Occult Blood Negative COVID-19 ([facility]) Not detected 01/09/20 01/09/20 01/10/20 17:13 21:48 06:15 POC Glucometer 242 217 54 Stool Occult Blood COVID-19 ([facility]) 01/10/20 01/10/20 07:01 11:12 POC Glucometer 103 219 Stool Occult Blood COVID-19 ([facility]) S1 S2 RRR Lungs clear Abd- soft, obese, NT trace edema PLAN dc iv fluids decrease PM Insulin GI eval noted starting diet monitor BGM COVID negative if sugars are better, will dc in AM Problem List - Problems (1) Anemia Code(s): D64.9 - ANEMIA, UNSPECIFIED (2) Diabetes mellitus with hyperosmolarity without hyperglycemic hyperosmolar nonketotic coma Code(s): E11.00 - TYPE 2 DIAB W HYPROSM W/O NONKET HYPRGLY-HYPROS COMA ([facility]) (3) HTN (hypertension) Code(s): I10 - ESSENTIAL (PRIMARY) HYPERTENSION
[2020-01-10] MEDS: MONTELUKAST NA 10 MG TABLET PO SCH (22:19)
[2020-01-10] MEDS: LATANOPROST 0.005% OPHTH SOLN 2.5ML BOTTLE OU SCH (22:32)
[2020-01-11] MEDS: LEVOTHYROXINE NA 25 MCG TABLET (FP) PO SCH (06:28)
[2020-01-11] MEDS: INSULIN SLIDING SCALE (NOVOLOG) 1 VIAL SQ SCH ×4 (06:28→21:32)
[2020-01-11] MEDS: hydrALAZINE HCL 10 MG TABLET PO SCH ×3 (06:29→21:30)
[2020-01-11] MEDS: INSULIN (LEVEMIR) 100 UNITS/ML UNITS SQ SCH ×2 (06:30→21:32)
[2020-01-11] MEDS ORDERED: PT OWN MED DRAWER 7, Y5N ONE (10:29)
[2020-01-11] MEDS: ASPIRIN 81 MG CHEWABLE TABLETS PO SCH (11:13)
[2020-01-11] MEDS: metoPROLOL SUCCINATE 25 MG TAB.SR.24H (FP) PO SCH (11:13)
[2020-01-11] MEDS: ISOSORBIDE MONONITRATE 60 MG TAB.SR.24H (FP) PO SCH (11:13)
[2020-01-11] MEDS: HEPARIN NA (PORCINE) 5,000 UNITS/ML 1ML VIAL SQ SCH ×2 (11:13→21:30)
--- NOTE | 2020-01-11 12:16 | DS ---
Physical Examination Vital Signs: Vital Signs Temperature 98.1 F 01/11/20 11:31 Pulse Rate 70 01/11/20 11:31 Respiratory Rate 20 01/11/20 11:31 Blood Pressure 145/80 01/11/20 11:31 O2 Sat by Pulse Oximetry (%) 95 01/11/20 11:31 Constitutional: Yes: No Distress, Calm Cardiovascular: Yes: Regular Rate and Rhythm Respiratory: Yes: CTA Bilaterally Gastrointestinal: Yes: Normal Bowel Sounds, Soft, Abdomen, Obese. No: Tenderness Edema: No Labs: CBC, BMP 01/09/20 08:20 01/09/20 08:20 Discharge Summary Problems reviewed: Yes Reason For Visit: PANCREATITIS Current Active Problems Anemia (Acute) Diabetes mellitus with hyperosmolarity without hyperglycemic hyperosmolar nonketotic coma (Acute) Encounter for screening laboratory testing for COVID-19 virus (Acute) HTN (hypertension) (Acute) Pancreatitis (Acute) Weakness (Acute) Hospital Course: - Primary Care Physician PCP: [facility]by [facility] - Admission Chief Complaint: Abnormal Lab Values, Weakness History of Present Illness: This is a 84 year old male with a significant PMHx of Anemia, DM, HTN. Who presents to the ED sent by his PCP for hyperglycemia and anemia. Patient reports having a loss of appetite x 2 weeks. he reports just drinking water and juice. He reports having an increased appetite starting yesterday. Patient denies fever, chills, cough, SOB, CP, palpitations, abdominal pain, nausea, vomiting, diarrhea, constipation, melena, hematochezia, dysuria. Patient denies sick contacts or recent travel. sono abd-- pancreatic edema GI eval noted -- not acute pancreatitis Pt stable on adjusting DM meds Off Glipizide Monitor BGM pt stable for dc home Condition: Good - Instructions Diet, Activity, Other Instructions: use insulin-- 12 units in morning and 6 units at night note your sugar readings down -- check twice a day Follow up with Dr Fish in 2 weeks and bring a record of your sugar readings Referrals: Kolby Fish MD [Primary Care Provider] - Disposition: HOME - Home Medications Comprehensive Discharge Medication List: Ambulatory Orders Aspirin 81 mg PO DAILY 01/08/20 Atorvastatin Ca [Lipitor] 20 mg PO HS 01/08/20 Glyburide 5 mg PO BID 01/08/20 Hydralazine HCl 10 mg PO TID 01/08/20 Insulin Glargine,Hum.rec.anlog [Jesus Infante] 48 unit SQ DAILY 01/08/20 Isosorbide Mononitrate [Isosorbide Mononitrate ER] 60 mg PO DAILY 01/08/20 Metoprolol Succinate 25 mg PO DAILY 01/08/20 Montelukast Sodium [Singulair] 10 mg PO HS 01/08/20 levoFLOXacin [Levaquin -] 500 mg PO DAILY 01/08/20 Latanoprost 1 drop OU HS 01/10/20
[2020-01-11] MEDS: MONTELUKAST NA 10 MG TABLET PO SCH (21:30)
[2020-01-11] MEDS: LATANOPROST 0.005% OPHTH SOLN 2.5ML BOTTLE OU SCH (21:31)
[2020-01-12] MEDS: hydrALAZINE HCL 10 MG TABLET PO SCH ×2 (06:24→13:37)
[2020-01-12] MEDS: INSULIN SLIDING SCALE (NOVOLOG) 1 VIAL SQ SCH ×2 (06:25→12:09)
[2020-01-12] MEDS: LEVOTHYROXINE NA 25 MCG TABLET (FP) PO SCH (06:25)
[2020-01-12] MEDS: INSULIN (LEVEMIR) 100 UNITS/ML UNITS SQ SCH (06:25)
[2020-01-12] MEDS ORDERED: INSULIN (NOVOLOG) ASPART 100 UNITS/ML 10ML VIAL ONE (06:40)
[2020-01-12] MEDS: ISOSORBIDE MONONITRATE 60 MG TAB.SR.24H (FP) PO SCH (09:52)
[2020-01-12] MEDS: HEPARIN NA (PORCINE) 5,000 UNITS/ML 1ML VIAL SQ SCH (09:53)
[2020-01-12] MEDS: ASPIRIN 81 MG CHEWABLE TABLETS PO SCH (09:53)
[2020-01-12] MEDS: metoPROLOL SUCCINATE 25 MG TAB.SR.24H (FP) PO SCH (09:53)
[2020-01-12 10:43] VITALS: BP 126/60; PULSE 72; TEMP 97.8
--- NOTE | 2020-01-12 11:51 | PN ---
Progress Note (short form) - Note Progress Note: events noted no abd pain could not be discharged yesterday as he was not able to check his sugars He admits he does not check sugars but he does give himself insulin daily Vital Signs - 24 hr 01/11/20 01/11/20 01/11/20 14:00 19:06 21:00 Temperature 98.1 F 98.2 F Pulse Rate 81 74 Respiratory 20 20 20 Rate Blood Pressure 122/58 L 131/54 L O2 Sat by Pulse 99 98 95 Oximetry (%) 01/11/20 01/12/20 01/12/20 23:00 02:00 06:00 Temperature 98.2 F 98.2 F 98.1 F Pulse Rate 64 64 63 Respiratory 20 20 20 Rate Blood Pressure 133/60 133/60 124/64 O2 Sat by Pulse 99 99 96 Oximetry (%) 01/12/20 01/12/20 09:00 10:42 Temperature 97.8 F Pulse Rate 72 Respiratory 18 Rate Blood Pressure 126/60 O2 Sat by Pulse 95 95 Oximetry (%) Current Medications Generic Name Dose Route Start Last Admin Trade Name Freq PRN Reason Stop Dose Admin Aspirin 81 mg 01/08/20 10:00 01/12/20 09:53 Asa - PO 81 mg DAILY [facility] Administration Heparin Sodium (Porcine) 5,000 unit 01/08/20 22:00 01/12/20 09:53 Heparin - SQ 5,000 unit BID [facility] Administration Hydralazine HCl 10 mg 01/08/20 14:00 01/12/20 06:24 Apresoline - PO 10 mg TID [facility] Administration Insulin Aspart 1 vial 01/08/20 07:00 01/12/20 12:09 Novolog Vial Sliding Scale - SQ 4 units ACHS [facility] Administration Protocol Insulin Detemir 12 units 01/11/20 07:00 01/12/20 06:25 Levemir Vial SQ 12 units AM [facility] Administration Insulin Detemir 6 units 01/10/20 22:00 01/11/20 21:32 Levemir Vial SQ 6 units HS [facility] Administration Isosorbide Mononitrate 60 mg 01/08/20 10:00 01/12/20 09:52 Imdur - PO 60 mg DAILY [facility] Administration Latanoprost 1 drop 01/10/20 22:00 01/11/20 21:31 Xalatan 0.005% Eye Drops - OU 1 drop HS [facility] Administration Levothyroxine Sodium 25 mcg 01/10/20 07:00 01/12/20 06:25 Synthroid - PO 25 mcg DAILY@0700 [facility] Administration Metoprolol Succinate 25 mg 01/08/20 10:00 01/12/20 09:53 Toprol Xl - PO 25 mg DAILY [facility] Administration Montelukast Sodium 10 mg 01/08/20 22:00 01/11/20 21:30 Singulair - PO 10 mg HS ST[facility]IE Administration Laboratory Results - last 24 hr 01/11/20 01/11/20 01/11/20 12:36 15:28 17:33 POC Glucometer 289 296 263 01/11/20 01/12/20 01/12/20 21:14 05:20 11:41 POC Glucometer 259 188 220 S1 S2 RRR Lungs clear Abd- soft, obese, NT no edema PLAN DM education in process spoke with son-- I advised him to get his sugars checked at least once a day and he will be following up with DR Fish in one week continue with current dose insulin stable for discharge home Problem List - Problems (1) Anemia Code(s): D64.9 - ANEMIA, UNSPECIFIED (2) Diabetes mellitus with hyperosmolarity without hyperglycemic hyperosmolar nonketotic coma Code(s): E11.00 - TYPE 2 DIAB W HYPROSM W/O NONKET HYPRGLY-HYPROS COMA ([facility]) (3) HTN (hypertension) Code(s): I10 - ESSENTIAL (PRIMARY) HYPERTENSION
== END 2020-01-12 13:52 | disposition home or self-care (01) | DRG 638 ==
LOC: JER 21:57 → JERBED 01-08 01:53 → J5S 01-08 20:12
PROVIDERS: ADMIT Hospitalist; ATTEND Internal Medicine
DX: E11.65 Type 2 diabetes mellitus with hyperglycemia (principal); N17.9 Acute kidney failure, unspecified; I10 Essential (primary) hypertension; E78.5 Hyperlipidemia, unspecified; I25.10 Atherosclerotic heart disease of native coronary artery without angina pectoris; D64.9 Anemia, unspecified; Z87.891 Personal history of nicotine dependence; Z79.4 Long term (current) use of insulin; E86.0 Dehydration; Z20.828 Contact with and (suspected) exposure to other viral communicable diseases; Z79.84 Long term (current) use of oral hypoglycemic drugs
CPT/HCPCS: 36415; 70450-TC; 71045-TC-FY; 76700-TC; 80053; 80061; 81003; 82010; 82272; 82803; 82962; 83036; 83690; 83721; 83735; 84443; 84484; 85025; 85045; 85610; 85730; 86850; 86900; 86901; 87086; 93005; 93010; 99285-25; J1644; J3480; U0003

== ENCOUNTER 2021-06-01 04:31 | Day surgery (SDC) | payer OTHER ==
[2021-05-30 14:26] VITALS: BMI 31.5
[2021-06-01 11:43] VITALS: TEMP 97.7
[2021-06-01 12:19] VITALS: BP 148/64; PULSE 78
== END 2021-06-01 12:48 | disposition home or self-care (01) ==
LOC: JASU-ENDO 04:31
PROVIDERS: ATTEND Internal Medicine Gastroenterology
PROC: 3E0H8KZ Introduction of Other Diagnostic Substance into Lower GI, Via Natural or Artificial Opening Endoscopic (ICD-10-PCS; 2021-06-01)
PROC: 0DBN8ZX Excision of Sigmoid Colon, Via Natural or Artificial Opening Endoscopic, Diagnostic (ICD-10-PCS; principal; 2021-06-01 11:45)
DX: C19 Malignant neoplasm of rectosigmoid junction (principal); K57.30 Diverticulosis of large intestine without perforation or abscess without bleeding; K62.5 Hemorrhage of anus and rectum; R19.4 Change in bowel habit; I10 Essential (primary) hypertension; E11.9 Type 2 diabetes mellitus without complications
CPT/HCPCS: 74176-TC; 82962; 88305-TC

== ENCOUNTER 2021-06-17 02:23 | Inpatient (IN) | payer OTHER ==
[2021-06-17] MEDS ORDERED: FUROSEMIDE 40 MG/4 ML INJECTABLE VIAL ONE ×2 (02:29→02:32)
[2021-06-17] MEDS ORDERED: methylPREDNISolone NA SUCC 125 MG/2 ML VIAL ONE ×2 (02:29→02:32)
[2021-06-17] MEDS ORDERED: NITROGLYCERIN 2% OINTMENT - 1GM PACKET TD ONE ×2 (02:32→03:44)
[2021-06-17] MEDS ORDERED: LEVALBUTEROL HCL 0.63 MG/3 ML VIAL.NEB. IH ONE ×2 (02:46→02:48)
[2021-06-17] MEDS ORDERED: LEVALBUTEROL HCL 0.63 MG/3 ML VIAL.NEB. IH PRN (02:47)
[2021-06-17 03:06] LABS: BASO % 0.3 % (0-2.0); EOS % 1.5 % (0-4.5); HEMATOCRIT 34.8 % (35.4-49); HEMOGLOBIN 11.4 GM/dL (11.7-16.9); LYMPH % 27.7 % (8-40); MCHC 32.6 g/dl (32.0-35.9); MEAN CELL VOLUME 85.7 fl (80-96); MEAN PLT VOLUME 7.8 fl (7.5-11.1); MONO % 10.3 % (3.8-10.2); NEUT % 60.2 % (42.8-82.8); PLATELET COUNT 283 10^3/uL (134-434); RBC 4.07 M/mm3 (4.00-5.60); RDW 14.3 % (11.9-15.9); WHITE BLOOD COUNT 10.6 K/mm3 (4.0-10.0)
[2021-06-17 03:07] LABS: VENOUS BASE EXCESS -3.2 mmol/L (-2-2); VENOUS O2 SATURATION 49.7 % (70-80)
[2021-06-17] MEDS ORDERED: FUROSEMIDE 40 MG/4 ML INJECTABLE VIAL IVPUSH ONE ×2 (03:11→04:30)
[2021-06-17 03:19] LABS: VENOUS PH 7.137 (7.310-7.410)
[2021-06-17 03:20] LABS: VENOUS PCO2 85.6 mmHg (38-52)
[2021-06-17 03:47] LABS: CALCIUM 8.4 mg/dL (8.5-10.1)
[2021-06-17 03:48] LABS: ALBUMIN 3.5 g/dl (3.4-5.0); BLOOD UREA NITROGEN 37.7 mg/dL (7-18); MAGNESIUM 2.6 mg/dL (1.8-2.4)
[2021-06-17 03:51] LABS: CREATININE 1.6 mg/dL (0.55-1.3)
[2021-06-17 03:53] LABS: BILIRUBIN,TOTAL 0.2 mg/dL (0.2-1); TOT PROT 7.2 g/dl (6.4-8.2)
[2021-06-17 03:56] LABS: N-TERMINAL BNP 2820.4 pg/ml (5-450)
[2021-06-17] MEDS ORDERED: methylPREDNISolone NA SUCC 125 MG/2 ML VIAL IVPUSH ONE (04:27)
[2021-06-17 05:00] LABS: EPI CELLS 5 /uL (0-25.1); HYALINE CASTS 1 /uL (0-3.1); URINE APPEARANCE CLEAR; URINE BACTERIA 8 /uL (0-1359); URINE BILIRUBIN NEGATIVE (NEGATIVE); URINE COLOR YELLOW; URINE GLUCOSE (UA) NEGATIVE (NEGATIVE); URINE KETONE NEGATIVE (NEGATIVE); URINE LEUK ESTERASE NEGATIVE (NEGATIVE); URINE NITRITE NEGATIVE (NEGATIVE); URINE PROTEIN 1+ (NEGATIVE); URINE RBC 312 /uL (0-23.9); URINE UROBILINOGEN 0.2 mg/dL (0.2-1.0); URINE WBC 4 /uL (0-25.8)
[2021-06-17 06:33] LABS: ARTERIAL BLD GAS O2 SATURATION 97.6 % (95-98); ARTERIAL BLOOD GAS BASE EXCESS 1.2 mmol/L (-2-2); ARTERIAL BLOOD GAS PO2 104.7 mmHg (80-100); ARTERIAL BLOOD GAS pH 7.365 (7.350-7.450)
[2021-06-17] MEDS ORDERED: LEVALBUTEROL HCL 0.31 MG/3 ML VIAL.NEB IH SCH (08:00)
[2021-06-17] MEDS ORDERED: ASPIRIN 81 MG CHEWABLE TABLETS ONE (10:00)
[2021-06-17] MEDS ORDERED: ISOSORBIDE MONONITRATE 60 MG TAB.SR.24H (FP) PO ONE (10:00)
[2021-06-17] MEDS ORDERED: metoPROLOL SUCCINATE 25 MG TAB.SR.24H (FP) ONE (10:01)
[2021-06-17] MEDS ORDERED: HEPARIN NA (PORCINE) 5,000 UNITS/ML 1ML VIAL ONE (10:01)
[2021-06-17] MEDS: ASPIRIN 81 MG CHEWABLE TABLETS PO SCH (10:21)
[2021-06-17] MEDS: metoPROLOL SUCCINATE 25 MG TAB.SR.24H (FP) PO SCH (10:22)
[2021-06-17] MEDS: HEPARIN NA (PORCINE) 5,000 UNITS/ML 1ML VIAL SQ SCH ×2 (10:22→21:57)
[2021-06-17] MEDS: ISOSORBIDE MONONITRATE 60 MG TAB.SR.24H (FP) PO SCH (10:22)
[2021-06-17 12:31] LABS: INR 1.09 (0.83-1.09); PROTHROMBIN TIME (PATIENT) 12.6 SEC (9.7-13.0)
[2021-06-17 12:33] LABS: ACTIVATED PTT 33.3 SECONDS (25.2-36.5)
[2021-06-17] MEDS: hydrALAZINE HCL 10 MG TABLET PO SCH ×2 (14:03→21:57)
[2021-06-17 17:50] VITALS: BMI 29.9
[2021-06-17] MEDS: MONTELUKAST NA 10 MG TABLET PO SCH (21:51)
[2021-06-17] MEDS ORDERED: INSULIN (NOVOLOG) ASPART 100 UNITS/ML 10ML VIAL SQ ONE (22:16)
[2021-06-18] MEDS: LEVOTHYROXINE NA 50 MCG TABLET (FP) PO SCH (06:22)
[2021-06-18] MEDS: INSULIN SLIDING SCALE (NOVOLOG) 1 VIAL SQ SCH ×4 (06:27→21:26)
[2021-06-18 08:26] LABS: BASO % 0.2 % (0-2.0); HEMATOCRIT 27.4 % (35.4-49); HEMOGLOBIN 8.8 GM/dL (11.7-16.9); LYMPH % 15.7 % (8-40); MCH 27.7 pg (25.7-33.7); MCHC 32.1 g/dl (32.0-35.9); MEAN CELL VOLUME 86.5 fl (80-96); MEAN PLT VOLUME 8.3 fl (7.5-11.1); MONO % 9.3 % (3.8-10.2); NEUT % 74.8 % (42.8-82.8); PLATELET COUNT 230 10^3/uL (134-434); RBC 3.17 M/mm3 (4.00-5.60); RDW 14.5 % (11.9-15.9); WHITE BLOOD COUNT 7.8 K/mm3 (4.0-10.0)
[2021-06-18 08:39] LABS: CALCIUM 7.8 mg/dL (8.5-10.1)
[2021-06-18 08:40] LABS: BLOOD UREA NITROGEN 51.1 mg/dL (7-18)
[2021-06-18 08:43] LABS: CREATININE 1.8 mg/dL (0.55-1.3)
[2021-06-18 08:44] LABS: BILIRUBIN,TOTAL 0.4 mg/dL (0.2-1)
[2021-06-18] MEDS: ISOSORBIDE MONONITRATE 60 MG TAB.SR.24H (FP) PO SCH (09:52)
[2021-06-18] MEDS: ASPIRIN 81 MG CHEWABLE TABLETS PO SCH (09:52)
[2021-06-18] MEDS: HEPARIN NA (PORCINE) 5,000 UNITS/ML 1ML VIAL SQ SCH ×2 (09:52→21:26)
[2021-06-18] MEDS: metoPROLOL SUCCINATE 25 MG TAB.SR.24H (FP) PO SCH (09:52)
[2021-06-18] MEDS: FUROSEMIDE 40 MG/4 ML INJECTABLE VIAL IVPUSH SCH (09:52)
[2021-06-18] MEDS: hydrALAZINE HCL 10 MG TABLET PO SCH ×2 (09:52→21:26)
[2021-06-18] MEDS: MONTELUKAST NA 10 MG TABLET PO SCH (21:26)
[2021-06-19] MEDS: LEVOTHYROXINE NA 50 MCG TABLET (FP) PO SCH (06:31)
[2021-06-19] MEDS: INSULIN SLIDING SCALE (NOVOLOG) 1 VIAL SQ SCH ×4 (06:31→21:25)
[2021-06-19 08:21] LABS: CALCIUM 8.2 mg/dL (8.5-10.1)
[2021-06-19 08:25] LABS: CREATININE 1.6 mg/dL (0.55-1.3)
[2021-06-19] MEDS: metoPROLOL SUCCINATE 25 MG TAB.SR.24H (FP) PO SCH (10:35)
[2021-06-19] MEDS: hydrALAZINE HCL 10 MG TABLET PO SCH ×2 (10:35→21:20)
[2021-06-19] MEDS: ISOSORBIDE MONONITRATE 60 MG TAB.SR.24H (FP) PO SCH (10:35)
[2021-06-19] MEDS: ASPIRIN 81 MG CHEWABLE TABLETS PO SCH (10:35)
[2021-06-19] MEDS: HEPARIN NA (PORCINE) 5,000 UNITS/ML 1ML VIAL SQ SCH ×2 (10:35→21:20)
[2021-06-19] MEDS: FUROSEMIDE 40 MG/4 ML INJECTABLE VIAL IVPUSH SCH (10:35)
[2021-06-19] MEDS: MONTELUKAST NA 10 MG TABLET PO SCH (21:20)
[2021-06-20] MEDS: LEVOTHYROXINE NA 50 MCG TABLET (FP) PO SCH (06:18)
[2021-06-20] MEDS: INSULIN SLIDING SCALE (NOVOLOG) 1 VIAL SQ SCH ×4 (06:21→21:52)
[2021-06-20 07:56] LABS: BASO % 0.5 % (0-2.0); EOS % 1.3 % (0-4.5); HEMATOCRIT 29.4 % (35.4-49); HEMOGLOBIN 9.5 GM/dL (11.7-16.9); MCH 27.7 pg (25.7-33.7); MCHC 32.3 g/dl (32.0-35.9); MEAN CELL VOLUME 85.9 fl (80-96); MEAN PLT VOLUME 8.2 fl (7.5-11.1); MONO % 9.8 % (3.8-10.2); NEUT % 67.4 % (42.8-82.8); PLATELET COUNT 254 10^3/uL (134-434); RBC 3.42 M/mm3 (4.00-5.60); RDW 14.3 % (11.9-15.9); WHITE BLOOD COUNT 6.1 K/mm3 (4.0-10.0)
[2021-06-20 08:00] LABS: CALCIUM 8.5 mg/dL (8.5-10.1)
[2021-06-20 08:01] LABS: BLOOD UREA NITROGEN 51.4 mg/dL (7-18)
[2021-06-20 08:04] LABS: CREATININE 1.5 mg/dL (0.55-1.3)
[2021-06-20 08:06] LABS: BILIRUBIN,TOTAL 0.3 mg/dL (0.2-1); TOT PROT 6.3 g/dl (6.4-8.2)
[2021-06-20] MEDS: hydrALAZINE HCL 10 MG TABLET PO SCH ×2 (10:38→21:46)
[2021-06-20] MEDS: HEPARIN NA (PORCINE) 5,000 UNITS/ML 1ML VIAL SQ SCH ×2 (10:38→21:47)
[2021-06-20] MEDS: ISOSORBIDE MONONITRATE 60 MG TAB.SR.24H (FP) PO SCH ×2 (10:38→10:41)
[2021-06-20] MEDS: metoPROLOL SUCCINATE 25 MG TAB.SR.24H (FP) PO SCH ×2 (10:38→10:40)
[2021-06-20] MEDS: ASPIRIN 81 MG CHEWABLE TABLETS PO SCH (10:38)
[2021-06-20] MEDS: FUROSEMIDE 40 MG/4 ML INJECTABLE VIAL IVPUSH SCH (10:57)
[2021-06-20] MEDS: MONTELUKAST NA 10 MG TABLET PO SCH (21:46)
[2021-06-21] MEDS: LEVOTHYROXINE NA 50 MCG TABLET (FP) PO SCH (06:28)
[2021-06-21] MEDS: INSULIN SLIDING SCALE (NOVOLOG) 1 VIAL SQ SCH ×4 (06:28→21:25)
[2021-06-21] MEDS: FUROSEMIDE 40 MG/4 ML INJECTABLE VIAL IVPUSH SCH (10:22)
[2021-06-21] MEDS: ASPIRIN 81 MG CHEWABLE TABLETS PO SCH (10:22)
[2021-06-21] MEDS: ISOSORBIDE MONONITRATE 60 MG TAB.SR.24H (FP) PO SCH (10:22)
[2021-06-21] MEDS: metoPROLOL SUCCINATE 25 MG TAB.SR.24H (FP) PO SCH (10:22)
[2021-06-21] MEDS: hydrALAZINE HCL 10 MG TABLET PO SCH ×2 (10:22→21:25)
[2021-06-21] MEDS: HEPARIN NA (PORCINE) 5,000 UNITS/ML 1ML VIAL SQ SCH ×2 (10:24→21:25)
[2021-06-21 15:57] LABS: BLOOD UREA NITROGEN 47.1 mg/dL (7-18); CALCIUM 8.3 mg/dL (8.5-10.1); MAGNESIUM 2.2 mg/dL (1.8-2.4)
[2021-06-21 16:02] LABS: CREATININE 1.1 mg/dL (0.55-1.3)
[2021-06-21] MEDS: MONTELUKAST NA 10 MG TABLET PO SCH (21:25)
[2021-06-22] MEDS: LEVOTHYROXINE NA 50 MCG TABLET (FP) PO SCH (06:25)
[2021-06-22] MEDS: INSULIN SLIDING SCALE (NOVOLOG) 1 VIAL SQ SCH ×4 (06:26→21:18)
[2021-06-22 08:32] LABS: HEMATOCRIT 30.3 % (35.4-49); HEMOGLOBIN 9.8 GM/dL (11.7-16.9); MCH 27.8 pg (25.7-33.7); MCHC 32.3 g/dl (32.0-35.9); MEAN CELL VOLUME 86.1 fl (80-96); MEAN PLT VOLUME 8.4 fl (7.5-11.1); PLATELET COUNT 166 10^3/uL (134-434); RBC 3.52 M/mm3 (4.00-5.60); RDW 14.1 % (11.9-15.9); WHITE BLOOD COUNT 6.6 K/mm3 (4.0-10.0)
[2021-06-22 08:35] LABS: BLOOD UREA NITROGEN 52.8 mg/dL (7-18); CALCIUM 8.4 mg/dL (8.5-10.1)
[2021-06-22 08:36] LABS: ALBUMIN 3.1 g/dl (3.4-5.0)
[2021-06-22 08:39] LABS: CREATININE 1.5 mg/dL (0.55-1.3)
[2021-06-22 08:40] LABS: BILIRUBIN,TOTAL 0.3 mg/dL (0.2-1); TOT PROT 6.3 g/dl (6.4-8.2)
[2021-06-22] MEDS: ASPIRIN 81 MG CHEWABLE TABLETS PO SCH (10:22)
[2021-06-22] MEDS: HEPARIN NA (PORCINE) 5,000 UNITS/ML 1ML VIAL SQ SCH ×2 (10:22→21:18)
[2021-06-22] MEDS: ISOSORBIDE MONONITRATE 60 MG TAB.SR.24H (FP) PO SCH (10:22)
[2021-06-22] MEDS: hydrALAZINE HCL 10 MG TABLET PO SCH ×2 (10:22→21:18)
[2021-06-22] MEDS: FUROSEMIDE 40 MG/4 ML INJECTABLE VIAL IVPUSH SCH (10:23)
[2021-06-22] MEDS ORDERED: POLYETHYLENE GLYCOL (HEALTHYLAX) 3350 17 GM PACKET PO PRN (11:04)
[2021-06-22] MEDS: SENNOSIDES 8.6MG TABLET (FP) PO SCH (21:17)
[2021-06-22] MEDS: MONTELUKAST NA 10 MG TABLET PO SCH (21:18)
[2021-06-23] MEDS: LEVOTHYROXINE NA 50 MCG TABLET (FP) PO SCH (06:04)
[2021-06-23] MEDS: INSULIN SLIDING SCALE (NOVOLOG) 1 VIAL SQ SCH ×4 (06:04→21:56)
[2021-06-23 10:51] LABS: CALCIUM 8.9 mg/dL (8.5-10.1)
[2021-06-23 10:52] LABS: BLOOD UREA NITROGEN 57.9 mg/dL (7-18)
[2021-06-23] MEDS: FUROSEMIDE 40 MG/4 ML INJECTABLE VIAL IVPUSH SCH (10:52)
[2021-06-23] MEDS: ASPIRIN 81 MG CHEWABLE TABLETS PO SCH (10:52)
[2021-06-23] MEDS: hydrALAZINE HCL 10 MG TABLET PO SCH ×2 (10:52→21:50)
[2021-06-23] MEDS: HEPARIN NA (PORCINE) 5,000 UNITS/ML 1ML VIAL SQ SCH ×2 (10:52→21:52)
[2021-06-23] MEDS: ISOSORBIDE MONONITRATE 60 MG TAB.SR.24H (FP) PO SCH (10:52)
[2021-06-23 10:55] LABS: CREATININE 1.5 mg/dL (0.55-1.3)
[2021-06-23] MEDS: SENNOSIDES 8.6MG TABLET (FP) PO SCH (21:51)
[2021-06-23] MEDS: MONTELUKAST NA 10 MG TABLET PO SCH (21:52)
[2021-06-24] MEDS: LEVOTHYROXINE NA 50 MCG TABLET (FP) PO SCH (06:16)
[2021-06-24] MEDS: INSULIN SLIDING SCALE (NOVOLOG) 1 VIAL SQ SCH ×4 (06:24→21:23)
[2021-06-24 08:25] LABS: BASO % 0.5 % (0-2.0); EOS % 1.4 % (0-4.5); HEMATOCRIT 29.8 % (35.4-49); HEMOGLOBIN 9.9 GM/dL (11.7-16.9); LYMPH % 18.8 % (8-40); MCH 28.1 pg (25.7-33.7); MCHC 33.1 g/dl (32.0-35.9); MEAN CELL VOLUME 84.6 fl (80-96); MEAN PLT VOLUME 8.2 fl (7.5-11.1); MONO % 11.8 % (3.8-10.2); NEUT % 67.5 % (42.8-82.8); PLATELET COUNT 248 10^3/uL (134-434); RBC 3.52 M/mm3 (4.00-5.60); WHITE BLOOD COUNT 5.8 K/mm3 (4.0-10.0)
[2021-06-24 08:45] LABS: CALCIUM 9.3 mg/dL (8.5-10.1)
[2021-06-24 08:46] LABS: ALBUMIN 3.2 g/dl (3.4-5.0); BLOOD UREA NITROGEN 56.3 mg/dL (7-18)
[2021-06-24 08:49] LABS: CREATININE 1.3 mg/dL (0.55-1.3)
[2021-06-24 08:51] LABS: BILIRUBIN,TOTAL 0.3 mg/dL (0.2-1); TOT PROT 6.5 g/dl (6.4-8.2)
[2021-06-24] MEDS: ISOSORBIDE MONONITRATE 60 MG TAB.SR.24H (FP) PO SCH (09:35)
[2021-06-24] MEDS: hydrALAZINE HCL 10 MG TABLET PO SCH ×2 (09:35→21:20)
[2021-06-24] MEDS: FUROSEMIDE 40 MG/4 ML INJECTABLE VIAL IVPUSH SCH (09:35)
[2021-06-24] MEDS: ASPIRIN 81 MG CHEWABLE TABLETS PO SCH (09:35)
[2021-06-24] MEDS: MONTELUKAST NA 10 MG TABLET PO SCH (21:19)
[2021-06-24] MEDS: SENNOSIDES 8.6MG TABLET (FP) PO SCH (21:19)
[2021-06-24] MEDS: HEPARIN NA (PORCINE) 5,000 UNITS/ML 1ML VIAL SQ SCH (21:20)
[2021-06-25] MEDS: LEVOTHYROXINE NA 50 MCG TABLET (FP) PO SCH (06:21)
[2021-06-25] MEDS: INSULIN SLIDING SCALE (NOVOLOG) 1 VIAL SQ SCH ×4 (06:21→21:33)
[2021-06-25] MEDS: ASPIRIN 81 MG CHEWABLE TABLETS PO SCH (09:29)
[2021-06-25] MEDS: hydrALAZINE HCL 10 MG TABLET PO SCH ×2 (09:30→21:33)
[2021-06-25] MEDS: ISOSORBIDE MONONITRATE 60 MG TAB.SR.24H (FP) PO SCH (09:30)
[2021-06-25] MEDS: HEPARIN NA (PORCINE) 5,000 UNITS/ML 1ML VIAL SQ SCH ×2 (09:31→21:33)
[2021-06-25] MEDS: FUROSEMIDE 40 MG/4 ML INJECTABLE VIAL IVPUSH SCH (09:31)
[2021-06-25] MEDS: POLYETHYLENE GLYCOL (HEALTHYLAX) 3350 17 GM PACKET PO SCH (09:33)
[2021-06-25] MEDS: SENNOSIDES 8.6MG TABLET (FP) PO SCH (21:33)
[2021-06-25] MEDS: MONTELUKAST NA 10 MG TABLET PO SCH (21:33)
[2021-06-26] MEDS: LEVOTHYROXINE NA 50 MCG TABLET (FP) PO SCH (06:28)
[2021-06-26] MEDS: INSULIN SLIDING SCALE (NOVOLOG) 1 VIAL SQ SCH ×4 (06:28→22:00)
[2021-06-26 08:19] LABS: BASO % 0.4 % (0-2.0); EOS % 1.6 % (0-4.5); HEMATOCRIT 27.1 % (35.4-49); HEMOGLOBIN 8.9 GM/dL (11.7-16.9); LYMPH % 24.1 % (8-40); MCH 27.7 pg (25.7-33.7); MCHC 32.7 g/dl (32.0-35.9); MEAN CELL VOLUME 84.5 fl (80-96); MEAN PLT VOLUME 8.5 fl (7.5-11.1); MONO % 12.3 % (3.8-10.2); NEUT % 61.6 % (42.8-82.8); PLATELET COUNT 269 10^3/uL (134-434); RDW 14.2 % (11.9-15.9)
[2021-06-26 08:39] LABS: CALCIUM 9.1 mg/dL (8.5-10.1)
[2021-06-26 08:40] LABS: BLOOD UREA NITROGEN 59.9 mg/dL (7-18)
[2021-06-26 08:42] LABS: CREATININE 1.5 mg/dL (0.55-1.3)
[2021-06-26 08:44] LABS: BILIRUBIN,TOTAL 0.3 mg/dL (0.2-1)
[2021-06-26] MEDS: ISOSORBIDE MONONITRATE 60 MG TAB.SR.24H (FP) PO SCH (09:43)
[2021-06-26] MEDS: hydrALAZINE HCL 10 MG TABLET PO SCH ×2 (09:43→21:56)
[2021-06-26] MEDS: ASPIRIN 81 MG CHEWABLE TABLETS PO SCH (09:43)
[2021-06-26] MEDS: HEPARIN NA (PORCINE) 5,000 UNITS/ML 1ML VIAL SQ SCH ×2 (09:44→21:56)
[2021-06-26] MEDS: POLYETHYLENE GLYCOL (HEALTHYLAX) 3350 17 GM PACKET PO SCH (09:44)
[2021-06-26] MEDS ORDERED: FUROSEMIDE 40 MG TABLET (FP) PO SCH (10:00)
[2021-06-26] MEDS: MONTELUKAST NA 10 MG TABLET PO SCH (21:56)
[2021-06-26] MEDS: SENNOSIDES 8.6MG TABLET (FP) PO SCH (21:56)
[2021-06-27] MEDS: LEVOTHYROXINE NA 50 MCG TABLET (FP) PO SCH (06:02)
[2021-06-27] MEDS: INSULIN SLIDING SCALE (NOVOLOG) 1 VIAL SQ SCH ×4 (06:06→21:41)
[2021-06-27] MEDS: ISOSORBIDE MONONITRATE 60 MG TAB.SR.24H (FP) PO SCH ×2 (08:23→13:05)
[2021-06-27] MEDS: ASPIRIN 81 MG CHEWABLE TABLETS PO SCH ×2 (08:23→13:05)
[2021-06-27] MEDS: hydrALAZINE HCL 10 MG TABLET PO SCH ×3 (08:23→21:40)
[2021-06-27] MEDS ORDERED: REGADENOSON 0.4 MG/5 ML PRE-FILLED SYRINGE IVPUSH ONE ×2 (09:51→10:00)
[2021-06-27] MEDS: POLYETHYLENE GLYCOL (HEALTHYLAX) 3350 17 GM PACKET PO SCH (13:05)
[2021-06-27] MEDS: FUROSEMIDE 40 MG TABLET (FP) PO SCH (13:06)
[2021-06-27] MEDS: HEPARIN NA (PORCINE) 5,000 UNITS/ML 1ML VIAL SQ SCH ×2 (13:06→21:40)
[2021-06-27 16:17] LABS: HEMATOCRIT 27.4 % (35.4-49); HEMOGLOBIN 8.9 GM/dL (11.7-16.9); MCH 27.3 pg (25.7-33.7); MCHC 32.3 g/dl (32.0-35.9); MEAN CELL VOLUME 84.7 fl (80-96); MEAN PLT VOLUME 8.3 fl (7.5-11.1); PLATELET COUNT 267 10^3/uL (134-434); RBC 3.24 M/mm3 (4.00-5.60); RDW 14.3 % (11.9-15.9); WHITE BLOOD COUNT 5.2 K/mm3 (4.0-10.0)
[2021-06-27] MEDS: SENNOSIDES 8.6MG TABLET (FP) PO SCH (21:40)
[2021-06-27] MEDS: MONTELUKAST NA 10 MG TABLET PO SCH (21:40)
[2021-06-27] MEDS ORDERED: INSULIN (NOVOLOG) ASPART 100 UNITS/ML 10ML VIAL ONE (21:41)
[2021-06-28] MEDS: LEVOTHYROXINE NA 50 MCG TABLET (FP) PO SCH (06:06)
[2021-06-28] MEDS: INSULIN SLIDING SCALE (NOVOLOG) 1 VIAL SQ SCH ×4 (06:06→22:35)
[2021-06-28] MEDS ORDERED: INSULIN (NOVOLOG) ASPART 100 UNITS/ML 10ML VIAL ONE (06:36)
[2021-06-28] MEDS: ISOSORBIDE MONONITRATE 60 MG TAB.SR.24H (FP) PO SCH (10:16)
[2021-06-28] MEDS: HEPARIN NA (PORCINE) 5,000 UNITS/ML 1ML VIAL SQ SCH ×2 (10:17→21:53)
[2021-06-28] MEDS: FUROSEMIDE 40 MG TABLET (FP) PO SCH (10:17)
[2021-06-28] MEDS: hydrALAZINE HCL 10 MG TABLET PO SCH ×2 (10:17→22:35)
[2021-06-28] MEDS: ASPIRIN 81 MG CHEWABLE TABLETS PO SCH (10:17)
[2021-06-28] MEDS: POLYETHYLENE GLYCOL (HEALTHYLAX) 3350 17 GM PACKET PO SCH (10:17)
[2021-06-28] MEDS ORDERED: ACETAMINOPHEN 500 MG TABLET (FP) PO PRN (17:20)
[2021-06-28] MEDS: SENNOSIDES 8.6MG TABLET (FP) PO SCH (21:52)
[2021-06-28] MEDS: MONTELUKAST NA 10 MG TABLET PO SCH (21:52)
[2021-06-29] MEDS: INSULIN SLIDING SCALE (NOVOLOG) 1 VIAL SQ SCH ×2 (06:00→15:55)
[2021-06-29] MEDS: LEVOTHYROXINE NA 50 MCG TABLET (FP) PO SCH (06:00)
[2021-06-29 07:46] VITALS: TEMP 97.9
[2021-06-29] MEDS: FUROSEMIDE 40 MG TABLET (FP) PO SCH (10:50)
[2021-06-29] MEDS: ISOSORBIDE MONONITRATE 60 MG TAB.SR.24H (FP) PO SCH (10:50)
[2021-06-29] MEDS: HEPARIN NA (PORCINE) 5,000 UNITS/ML 1ML VIAL SQ SCH (10:51)
[2021-06-29] MEDS: hydrALAZINE HCL 10 MG TABLET PO SCH (10:51)
[2021-06-29] MEDS: ASPIRIN 81 MG CHEWABLE TABLETS PO SCH (10:51)
[2021-06-29] MEDS: POLYETHYLENE GLYCOL (HEALTHYLAX) 3350 17 GM PACKET PO SCH (10:51)
[2021-06-29 16:18] VITALS: BP 112/49; PULSE 85
== END 2021-06-29 17:01 | disposition home or self-care (01) | DRG 291 ==
LOC: JER 02:23 → JERBED 03:16 → J4S 17:30 → J8W 06-26 18:11
PROVIDERS: ADMIT Internal Medicine; ATTEND Internal Medicine
DX: I13.0 Hypertensive heart and chronic kidney disease with heart failure and stage 1 through stage 4 chronic kidney disease, or unspecified chronic kidney disease (principal); I50.23 Acute on chronic systolic (congestive) heart failure; C18.9 Malignant neoplasm of colon, unspecified; E87.2 Acidosis; I47.1 Supraventricular tachycardia; E03.9 Hypothyroidism, unspecified; E11.22 Type 2 diabetes mellitus with diabetic chronic kidney disease; N18.9 Chronic kidney disease, unspecified; D64.9 Anemia, unspecified
CPT/HCPCS: 36415; 36600; 71045-TC-FY; 71046-TC-FY; 78452-TC; 80048; 80053; 81003; 82803; 82962; 83735; 83880; 84443; 84484; 85025; 85027; 85610; 85730; 87040; 87086; 93005; 93010; 93017; 97116-GP; 97161-GP; 99285-25; A9502; C9803; J1644; J2785; U0003; U0005

== ENCOUNTER 2021-06-30 19:46 | Emergency (ER) | payer OTHER ==
[2021-06-30 19:57] VITALS: BMI 27.8
[2021-06-30] MEDS ORDERED: NITROGLYCERIN SUBLINGUAL 1/150 0.4 MG TAB SL ONE (20:01)
[2021-06-30 20:21] LABS: ARTERIAL BLOOD GAS PO2 158.4 mmHg (80-100); ARTERIAL BLOOD GAS pH 7.367 (7.350-7.450)
[2021-06-30 20:22] LABS: ALLENS TEST POSITIVE
[2021-06-30 20:23] LABS: VENT MODE S/T; VENT RATE 14
[2021-06-30] MEDS ORDERED: ALBUTEROL SO4 2.5/IPRATROPIUM 0.5 INH SOL 3 ML VIAL.NEB. NEB ONE (20:29)
[2021-06-30] MEDS: ALBUTEROL SO4 2.5/IPRATROPIUM 0.5 INH SOL 3 ML VIAL.NEB. NEB SCH ×4 (20:29→21:15)
[2021-06-30 20:30] VITALS: TEMP 99.2
[2021-06-30 20:31] LABS: BASO % 0.5 % (0-2.0); EOS % 0.6 % (0-4.5); HEMATOCRIT 31.4 % (35.4-49); HEMOGLOBIN 10.4 GM/dL (11.7-16.9); LYMPH % 8.7 % (8-40); MCH 27.9 pg (25.7-33.7); MEAN CELL VOLUME 84.5 fl (80-96); MONO % 7.4 % (3.8-10.2); NEUT % 82.8 % (42.8-82.8); PLATELET COUNT 341 10^3/uL (134-434); RBC 3.71 M/mm3 (4.00-5.60); WHITE BLOOD COUNT 9.3 K/mm3 (4.0-10.0)
[2021-06-30 20:38] LABS: INR 1.06 (0.83-1.09); PROTHROMBIN TIME (PATIENT) 12.2 SEC (9.7-13.0)
[2021-06-30 20:53] LABS: CALCIUM 8.2 mg/dL (8.5-10.1)
[2021-06-30 20:55] LABS: ALBUMIN 3.5 g/dl (3.4-5.0); BLOOD UREA NITROGEN 45.5 mg/dL (7-18); MAGNESIUM 1.9 mg/dL (1.8-2.4)
[2021-06-30 20:58] LABS: BILIRUBIN,TOTAL 0.3 mg/dL (0.2-1); TOT PROT 7.2 g/dl (6.4-8.2)
[2021-06-30 21:03] LABS: N-TERMINAL BNP 6272.1 pg/ml (5-450)
[2021-06-30] MEDS ORDERED: PIPERACILLIN/TAZOB 3.375 GM 3.375 GM in DEXTROSE 5%-WATER - 50 ML IVPB ONE (21:30)
[2021-06-30] MEDS ORDERED: VANCOMYCIN 1 GM in D5W (PRE-DOCKED) 1,000 MG/250 ML IVPB ONE (21:33)
[2021-06-30] MEDS ORDERED: PIPERACILLIN/TAZOB 3.375 GM 3.375 GM/50 ML BAG IVPB ONE (21:55)
[2021-06-30] MEDS ORDERED: HYDROmorphone HCL CARPU-JECT 2 MG/1 ML DISP.SYRIN IVPUSH ONE (22:34)
[2021-06-30] MEDS ORDERED: ALBUTEROL SO4 2.5/IPRATROPIUM 0.5 INH SOL 3 ML VIAL.NEB. NEB SCH (22:45)
[2021-06-30 22:56] VITALS: BP 124/58; PULSE 98
== END 2021-07-01 00:14 | disposition short-term general hospital (02) ==
LOC: JER 19:46
PROC: 3E0F7GC Introduction of Other Therapeutic Substance into Respiratory Tract, Via Natural or Artificial Opening (ICD-10-PCS; principal; 2021-06-30)
PROC: 3E033GC Introduction of Other Therapeutic Substance into Peripheral Vein, Percutaneous Approach (ICD-10-PCS; 2021-06-30)
DX: J96.01 Acute respiratory failure with hypoxia (principal); N17.9 Acute kidney failure, unspecified; I10 Essential (primary) hypertension; C19 Malignant neoplasm of rectosigmoid junction
CPT/HCPCS: 36415; 36600; 71045-TC-FY; 80053; 82803; 83735; 83880; 84443; 84484; 85025; 85610; 85730; 93005; 93010; 99284-25; C9803; U0003; U0005